=== PATIENT | male | born 2000 | race African-American/Black ===

== ENCOUNTER 2022-01-17 11:48 | Emergency (ER) | payer SELFPAY ==
--- NOTE | 2022-01-17 11:51 | ED.DENTAL ---
HPI - Dental/Oral General Chief complaint: Dental/Oral Stated complaint: Mouth Time Seen by Provider: 01/17/22 11:51 Source: patient Mode of arrival: ambulatory Limitations: no limitations History of Present Illness HPI Narrative: Mr. Celso Giordano is a 21-year-old male patient presenting to the clinic today with complaints of concerns with his cheeks. He reports that he does not have any pain in his mouth but he is worried about the ulcerations in his mouth that are to bilateral inside cheeks around his teeth Related Data Home Medications Medication Instructions Recorded Confirmed No Home Medications 01/17/22 01/17/22 Allergies Allergy/AdvReac Type Severity Reaction Status Date / Time No Known Allergies Allergy Mild Verified 01/17/22 11:51 Review of Systems Review of Systems: Pertinent positives per HPI. Patient denies any fever, chills, rash, headache, visual changes, dizziness, cough, runny nose, sore throat, shortness of breath, chest pain, palpitations, nausea, vomiting, diarrhea, constipation, abdominal pain, or any urinary issues. PMFSH Comments At the time of my signature, I reviewed and agree with the nursing past medical, surgical, social, and family history. There is no relevant family history pertinent to the patient complaint. Exam Narrative: General: Well-developed, well nourished, in no apparent distress Head: Normocephalic, atraumatic Eyes: Pupils equally round and reactive to light bilaterally, EOM intact, sclera and conjunctive clear, no discharge, lids normal Ears: TMs intact and clear, ear canals clear, no drainage, grossly hearing normal. Nose: Nares patent, no discharge, no inflammation, no sinus tenderness. Mouth: Oropharynx without lesions or masses, poor dentition, macerated ulcerations to the inside of bilateral cheeks around teeth, no sign of infection, nontender to palpation Neck: Supple, trachea midline, no enlargement of anterior or posterior cervical nodes, no thyroid masses or goiter palpable. Cardio: Regular rate and rhythm, s1 and s2 normal, no murmur appreciated. Resp: Clear to auscultation bilaterally anteriorly and posteriorly, no rhonchi, rales, wheezing or rubs Course Course Emergency Course: Portions of this record may have been created with voice recognition software. Level of Care: Express Care Visit Vital Signs Vital signs: Vital signs reviewed MDM - Dental/Oral MDM Narrative Medical decision making narrative: At the time of visit patient is resting comfortably on the exam table. Patient has a macerated cheek tissue that could be caused by chewing/biting the inside of his cheeks. He is concerned that he may have HIV and I explained to him that we are not currently a testing site for HIV and that he will need to follow-up with his PCP or a STD clinic and he voiced understanding. Supportive measures were discussed with the patient he voiced understanding of discharge instructions and agrees to treatment Differential Diagnosis Differential diagnosis: Likely gingival abscess, dental caries, toothache, dental abscess, aphthous ulcer and other (Macerated tissue and cheek) Discharge Plan Discharge Clinical Impression: Morsicatio buccarum Patient Disposition: Home, Self-Care Condition: Stable Instructions: Antibiotic Form Additional Instructions: His habit can be caused by a habitual behavior Try stop chewing/biting cheeks and this will heal on its own Follow-up with your PCP as needed Prescriptions: No Action No Home Medications Follow-up/Referrals: PHYSICIAN,[employer] [Primary Care Provider] - Time of Disposition: 12:14 Quality NIHSS Nursing Documentation ED NIHSS nursing documentation: reviewed/agree
[2022-01-17 12:01] VITALS: BP 143/77; PULSE 79; RESP 18; TEMP 36.8; O2SAT 100
== END 2022-01-17 12:17 | disposition home or self-care (01) ==
PROVIDERS: Emergency Provider Nurse Practitioner Family
DX: K13.1 Cheek and lip biting (principal)
CPT/HCPCS: 99211; G0463